=== PATIENT | male | born 2000 | race Caucasian/White ===

== ENCOUNTER 2022-03-03 20:30 | Emergency (ER) | payer BC ==
[2022-03-03] MEDS ORDERED: Diphtheria/Tetanus Toxoids,Adult (Td) 0.5 ML SDV IM ONE (20:55)
[2022-03-03] MEDS: Silver Sulfadiazine 1% Crm 50 GM Tube TOP ONE (21:05)
[2022-03-03] MEDS: Take Home: Naproxen 500 MG Tab, 4 Tab Pack PO ONE (21:28)
[2022-03-03] MEDS: Take Home: Acetaminophen/oxyCODONE 325-5 MG, 5 Tab Pack PO ONE (21:28)
[2022-03-03] MEDS: Diphtheria,Pertussis(Acell),Tetanus Vaccine 0.5 ML Syringe IM ONE (21:30)
[2022-03-03 22:56] VITALS: BP 132/80; PULSE 84
== END 2022-03-03 21:40 | disposition home or self-care (01) ==
LOC: VM.ED 20:30
DX: T22.111A Burn of first degree of right forearm, initial encounter (principal); T22.112A Burn of first degree of left forearm, initial encounter; T23.111A Burn of first degree of right thumb (nail), initial encounter; T23.112A Burn of first degree of left thumb (nail), initial encounter; X10.2XXA Contact with fats and cooking oils, initial encounter
CPT/HCPCS: 16020; 90715; 99284-25; A9270-GY

== ENCOUNTER 2025-02-06 07:02 | Emergency (ER) | payer BC, MEDICAID ==
[2025-02-06] MEDS: Clindamycin Phosphate in D5W 600 MG in Premix Bag 1 BAG IV ONE (08:00)
[2025-02-06 08:41] VITALS: BP 114/57; PULSE 81
== END 2025-02-06 08:35 | disposition home or self-care (01) ==
LOC: VM.ED 07:02
DX: L03.113 Cellulitis of right upper limb (principal); F17.200 Nicotine dependence, unspecified, uncomplicated; Z79.899 Other long term (current) drug therapy
CPT/HCPCS: 96365; 99283; 99283-25; J0736